=== PATIENT | male | born 1985 | race African-American/Black ===

== ENCOUNTER 2021-11-22 03:40 | Emergency (ER) | payer MEDICAID, OTHER ==
[~2021-11-22] VITALS: Ht 180.3 cm; Wt 91.0 kg
[2021-11-22 03:42] VITALS: BP 142/80
== END 2021-11-22 05:00 | disposition left against medical advice (07) ==
LOC: ER 03:40
DX: Z53.21 Procedure and treatment not carried out due to patient leaving prior to being seen by health care provider (principal)

== ENCOUNTER 2022-02-01 15:08 | Emergency (ER) | payer SELFPAY ==
[~2022-02-01] VITALS: Ht 185.4 cm; Wt 100.0 kg
[2022-02-01 15:29] VITALS: BP 144/85
[2022-02-01 18:26] LABS: CLARITY URINE CLEAR (CLEAR); COLOR URINE YELLOW (YELLOW); KETONES URINE NEGATIVE (NEGATIVE); LEUKOCYTE ESTERASE URINE NEGATIVE (NEGATIVE); NITRITE URINE NEGATIVE (NEGATIVE); OCCULT BLOOD URINE 1+ (NEGATIVE); PROTEIN URINE NEGATIVE (NEGATIVE); SPECIFIC GRAVITY URINE 1.003 (1.005-1.030); UROBILINOGEN URINE 0.2 E.U./dL (0.2-1.0)
[2022-02-01] MEDS ORDERED: IBUPROFEN 600MG TABLET PO STA (19:06)
[2022-02-01] MEDS ORDERED: ONDANSETRON 4MG ODT PO STA (19:06)
[2022-02-01] MEDS ORDERED: IBUPROFEN 600MG TABLET PO NR (21:15)
[2022-02-01] MEDS ORDERED: ONDANSETRON 4MG ODT PO NR (21:15)
[2022-02-01 21:17] LABS: BASOPHILS % 0.4 % (0.0-2.0); EOSINOPHILS % 0.1 % (0.0-5.0); HEMATOCRIT. 44.2 % (42.0-52.0); LYMPHOCYTES % 12.1 % (20.0-50.0); MEAN CORPUSCULAR HEMOGLOBIN 30.2 pg (28.0-32.0); MEAN CORPUSCULAR VOLUME 89.2 fL (80.0-94.0); MONOCYTES % 5.6 % (2.0-8.0); NEUTROPHILS % 81.8 % (40.0-76.0); PLATELET 247 x1000/uL (130-400); RED BLOOD CELL COUNT 4.96 mill/uL (4.7-6.1); RED CELL DISTRIBUTION WIDTH 13.4 % (11.6-14.6)
[2022-02-01 21:27] LABS: CHLORIDE 105 mEq/L (98-107)
[2022-02-01] MEDS ORDERED: IBUP-2029 MT (21:45)
[2022-02-01] MEDS ORDERED: TAMS-11 MT (21:45)
== END 2022-02-01 22:11 | disposition home or self-care (01) ==
LOC: ER 15:08
DX: N13.2 Hydronephrosis with renal and ureteral calculous obstruction (principal)
CPT/HCPCS: 36415; 74176; 80053; 81003; 85025; 99284; Q0162